=== PATIENT | female | born 1945 | race Caucasian/White ===

== ENCOUNTER 2017-07-28 09:23 | Emergency (ER) | payer SELFPAY ==
[~2017-07-28] VITALS: Ht 157.5 cm; Wt 74.4 kg
[2017-07-28 09:37] VITALS: BP 157/77
--- NOTE | 2017-07-28 09:44 | NUR ---
Patient to bed 12.
--- NOTE | 2017-07-28 09:45 | NUR ---
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 ER MD MADE AWARE OF PT STATUS.
[2017-07-28] MEDS ORDERED: KETOROLAC 60 MG/2 ML VIAL IM ONE (10:20)
[2017-07-28] MEDS ORDERED: KETAMINE 500 MG/5 ML VIAL IVP ONE (11:15)
[2017-07-28] MEDS ORDERED: NACL 0.9% 1,000 ML IV ONE (11:15)
[2017-07-28] MEDS ORDERED: MIDAZOLAM 2 MG/2 ML VIAL IVP ONE (11:15)
--- NOTE | 2017-07-28 11:40 | NUR ---
RT LAURA, RN, , AT BEDSIDE TO EVALUATE PT.
--- NOTE | 2017-07-28 11:41 | NUR ---
TIMEOUT [facility] BY BEDSIDE FOR CLOSED SHOULDER REDUCTION.
--- NOTE | 2017-07-28 11:43 | NUR ---
VERSED 2 MG GIVEN.
--- NOTE | 2017-07-28 11:45 | NUR ---
KETAMING 100 MG GIVEN
--- NOTE | 2017-07-28 11:46 | NUR ---
REDUCED RIGHT SHOULDER BY BEDSIDE.
--- NOTE | 2017-07-28 11:56 | NUR ---
X-RAY TECH AT BEDSIDE FOR S/P REDUCTION.
--- NOTE | 2017-07-28 12:00 | NUR ---
PT OPENS EYES, BP 176/88, HR 91, O2 SAT 100%. NOTIFIED DR. WELLS.
--- NOTE | 2017-07-28 12:10 | NUR ---
PT OPENS EYES, ABLE TO FOLLOW COMMANDS.
--- NOTE | 2017-07-28 12:15 | NUR ---
PT'S SON TOLD ME PT HAS DIZZINESS, NOTIFIED DR. WELLS AND VITALS.
--- NOTE | 2017-07-28 12:20 | NUR ---
PT STATED SHE FEELS BETTER.
--- NOTE | 2017-07-28 12:40 | NUR ---
MONITOR SHOWS SR, BP 143/68. O2 SAT 98%.
--- NOTE | 2017-07-28 12:50 | NUR ---
HR 73. BP 133/65. SPO2 96%, RR 15.
--- NOTE | 2017-07-28 13:50 | NUR ---
PT AWAKE, ALERT, AND ORIENTED. ASSISSTED PT TO BATHROOM.
--- NOTE | 2017-07-28 14:00 | NUR ---
Patient discharged with v/s stable. Written and verbal after care instructions given and explained TO PT AND PT'S SON. Patient alert, oriented and verbalized understanding of instructions. Ambulatory with steady gait. All questions addressed prior to discharge. ID band removed. Patient advised to follow up with PMD. Rx of MOTRIN given. Patient educated on indication of medication including possible reaction and side effects. Opportunity to ask questions provided and answered.
[2017-07-28 14:05] VITALS: BP 137/68
== END 2017-07-28 14:00 | disposition home or self-care (01) ==
LOC: MED 09:23
DX: S43.004A Unspecified dislocation of right shoulder joint, initial encounter (principal); R03.0 Elevated blood-pressure reading, without diagnosis of hypertension; Z88.0 Allergy status to penicillin; W01.0XXA Fall on same level from slipping, tripping and stumbling without subsequent striking against object, initial encounter; Y93.89 Activity, other specified; Y92.89 Other specified places as the place of occurrence of the external cause; Y99.8 Other external cause status
CPT/HCPCS: 73030; 96360; 96361; 96372; 99152; 99285; J1885; J2250; Q0092